=== PATIENT | male | born 1945 | race Caucasian/White ===

== ENCOUNTER → 2016-10-21 | Outpatient (CLI) | payer MEDICARE | END | disposition home or self-care (01) | LOC: LAB.O 10:20 | PROVIDERS: ATTEND Psychiatry & Neurology Neurology | DX: R53.83 Other fatigue (principal); M79.A9 Nontraumatic compartment syndrome of other sites; M54.12 Radiculopathy, cervical region ==

== ENCOUNTER → 2017-01-31 | Outpatient (CLI) | payer MEDICARE | END | disposition home or self-care (01) | LOC: GMAM 11:21 | PROVIDERS: ATTEND Family Medicine | DX: Z12.5 Encounter for screening for malignant neoplasm of prostate (principal); E29.1 Testicular hypofunction | CPT/HCPCS: 84403; G0103 ==

== ENCOUNTER → 2017-03-27 | Outpatient (CLI) | payer MEDICARE | END | disposition home or self-care (01) | LOC: LAB.O 12:03 | PROVIDERS: ATTEND Family Medicine | DX: D45 Polycythemia vera (principal) ==

== ENCOUNTER → 2017-04-11 | Outpatient (CLI) | payer MEDICARE | END | disposition home or self-care (01) | LOC: LAB.O 15:29 | PROVIDERS: ATTEND Family Medicine | DX: D45 Polycythemia vera (principal) ==

== ENCOUNTER → 2017-11-21 | Outpatient (CLI) | payer MEDICARE | LOC: GMAM 11:08 | PROVIDERS: ATTEND Family Medicine | DX: M79.643 Pain in unspecified hand (principal); M79.646 Pain in unspecified finger(s) ==

== ENCOUNTER → 2018-03-29 | Outpatient (CLI) | payer MEDICARE | LOC: GMAM 10:51 | PROVIDERS: ATTEND Family Medicine | DX: Z12.5 Encounter for screening for malignant neoplasm of prostate (principal); E29.1 Testicular hypofunction | CPT/HCPCS: 84403; G0103 ==

== ENCOUNTER → 2018-07-20 | Outpatient (CLI) | payer MEDICARE ==
--- NOTE | 2018-07-20 15:19 | CT ---
EXAM: Chest w/Contrast CLINICAL HISTORY: COUGH COMPARISON STUDY: None. TECHNICAL: Post contrast CT images were performed through the chest. Sagittal and coronal reconstructions were acquired. FINDINGS: Soft tissue or mediastinal windows demonstrate no mass or lymphadenopathy. The heart is not enlarged. The aorta is non-dilated. There is no sign of an aortic dissection. The pulmonary arterial system as imaged is negative. The limited images of the upper abdomen are negative. There are moderate osteoarthritic changes of the right shoulder and both sternoclavicular joints. Pulmonary parenchymal windows show no mass, consolidation, interstitial pulmonary edema, or pleural effusion. A small band of atelectasis is present in the right lower lobe. There is elevation of the right hemidiaphragm. IMPRESSION: 1. No acute cardiopulmonary abnormality. 2. Moderate osteoarthritic changes of the right shoulder and both sternoclavicular joints. This exam was performed according to our departmental dose-optimization program, which includes automated exposure control, adjustment of the mA and/or kV according to patient size and/or use of iterative reconstruction technique. Electronically signed by: Salinas James MD 07/20/2018 3:16 PM [facility]
== END ==
LOC: LAB.O 10:02
PROVIDERS: ATTEND Family Medicine
DX: R05 Cough (principal); M19.011 Primary osteoarthritis, right shoulder

== ENCOUNTER → 2019-04-09 | Outpatient (CLI) | payer MEDICARE | LOC: GMAM 10:23 | PROVIDERS: ATTEND Family Medicine | DX: E29.1 Testicular hypofunction (principal); Z12.5 Encounter for screening for malignant neoplasm of prostate | CPT/HCPCS: 84403; G0103 ==